=== PATIENT | female | born 1935 | race Caucasian/White ===

== ENCOUNTER → 2016-12-03 | Outpatient (CLI) | payer BC ==
[~2016-12-03] MED LIST: ATOR-22 PO; AZEL0.057; CALC500C70 PO; CETI5TAB5 PO; CLB/200 PO; CLIN1GEL TOP; COEN1CAP17 PO; ESCI1TAB6 PO; FEXO1TAB46 PO; GABA-112 PO; GLUCPOW41 PO; METR0.7527 TOP; POLYSOL4; [UNRECOGNIZED DRUG - CODE] TOP; [UNRECOGNIZED DRUG - CODE] TOP; [UNRECOGNIZED DRUG - OTHER] PO
--- NOTE | 2016-12-03 10:00 | DIAGNOSTIC IMAGING REPORT ---
LUMBAR SPINE MRI HISTORY: Pain BACK PAIN TECHNIQUE: Multiplanar multisequence MRI of the lumbar spine was performed without the use of contrast. COMPARISON: None. FINDINGS: For the purpose of the report the L5-S1 disc space will be located on axial image 27 of 30. Moderate to rather significant multilevel degenerative intervertebral disc change. Minimal grade 1 reversal subluxation of L5 on S1. Minimal grade 1 anterolisthesis of L4 and L5. T12/L1; mild broad-based disc herniation. Mild impact anterior thecal sac. L1-L2: Moderate broad-based disc herniation. Moderate impact anterior thecal sac. Mild multifactorial narrowing of the spinal canal. Degenerative change posterior elements. L2-L3: Mild multifactorial narrowing of spinal canal. Mild broad-based disc herniation. Minimal narrowing of the neuroforamina bilaterally L3-L4: Significant to rather severe multifactorial spinal stenosis. Based disc herniation. No significant narrowing left and to lesser extent right neural foramina. L4-L5: Moderate multifactorial spinal stenosis. Broad-based disc herniation. Minimal grade 1 anterolisthesis of L4 and L5. Mild narrowing of the neuroforamina bilaterally. L5-S1: Mild broad-based disc herniation. Mild impact anterior thecal sac and right as well as left S1 nerve roots. Moderate compromise of the neuroforamina bilaterally. IMPRESSION: 1. Multilevel degenerative disc change with multilevel disc herniations at virtually all levels as described. 2. Severe multifactorial spinal stenosis L3-L4 and to a somewhat lesser extent L4-L5. 3. Moderate to rather significant compromise of the neuroforamina bilaterally at virtually all levels as discussed. Electronically signed by: Emile Sneed M.D. 12/03/2016 9:59 AM Dictated Date/Time: 12/03/2016 9:53 AM
== END | disposition home or self-care (01) ==
LOC: C.MRI 08:23
PROVIDERS: ATTEND Internal Medicine
DX: M51.26 Other intervertebral disc displacement, lumbar region (principal); M48.06 Spinal stenosis, lumbar region; Z79.1 Long term (current) use of non-steroidal anti-inflammatories (NSAID)

== ENCOUNTER → 2017-01-04 | Outpatient (CLI) | payer BC ==
--- NOTE | 2017-01-04 14:34 | DIAGNOSTIC IMAGING REPORT ---
LEG LENGTH STUDY (WHOLE LEG) CLINICAL HISTORY: LEG LENGTH DISCREPENCY, LOW BACK PAIN, RT HIP PAIN COMPARISON STUDY: No previous studies for comparison. FINDINGS: The right lower extremity as measured from the femoral head to the tibial plafond measures 938 mm. The left lower extremity as measured from the femoral head to the tibial plafond measures 942 mm. IMPRESSION: The left lower extremity measures 4 mm longer than the right. Electronically signed by: Mingo Bolden M.D. 01/04/2017 2:32 PM Dictated Date/Time: 01/04/2017 2:30 PM
== END | disposition home or self-care (01) ==
LOC: C.RADBC 14:09
PROVIDERS: ATTEND Anesthesiology
DX: M54.5 Low back pain (principal); M25.551 Pain in right hip; M21.70 Unequal limb length (acquired), unspecified site

== ENCOUNTER → 2017-01-07 | Outpatient (CLI) | payer BC ==
[~2017-01-07] MED LIST changes: -CLIN1GEL TOP; -FEXO1TAB46 PO
[2017-01-07 09:37] LABS: BLOOD UREA NITROGEN 20 mg/dl (7-18); BUN/CREATININE RATIO 25.9 (10-20); CALCIUM 8.3 mg/dl (8.5-10.1); CARBON DIOXIDE 27 mmol/L (21-32); CHLORIDE 107 mmol/L (98-107); CHOLESTEROL 133 mg/dl (0-200); CHOLESTEROL/HDL RATIO 2.5; CREATININE 0.78 mg/dl (0.60-1.20); GLUCOSE 99 mg/dl (70-99); HDL CHOLESTEROL 54 mg/dl; LDL CHOLESTEROL CALCULATED 62 mg/dl; POTASSIUM 3.8 mmol/L (3.5-5.1); SODIUM 142 mmol/L (136-145); TRIGLYCERIDES 83 mg/dl (0-150); VERY LOW DENSITY LIPOPROT CALC 17 mg/dl
== END | disposition home or self-care (01) ==
LOC: C.LABFOXMH 09:01
PROVIDERS: ATTEND Internal Medicine
DX: E78.00 Pure hypercholesterolemia, unspecified (principal)

== ENCOUNTER → 2017-05-28 | Outpatient (CLI) | payer BC ==
[2017-05-28 09:44] LABS: HEMATOCRIT 38.6 % (37-47); MEAN CELL VOLUME 94.4 fL (80-100); MEAN CORPUSCULAR HGB CONC 33.9 g/dl (32-36); MEAN PLATELET VOLUME 11.4 fL (7.4-10.4); PLATELET COUNT 152 K/uL (130-400); RED BLOOD COUNT 4.09 M/uL (4.2-5.4); WHITE BLOOD COUNT 7.08 K/uL (4.8-10.8)
[2017-05-28 09:58] LABS: BLOOD UREA NITROGEN 26 mg/dl (7-18); BUN/CREATININE RATIO 30.1 (10-20); CALCIUM 8.4 mg/dl (8.5-10.1); CARBON DIOXIDE 31 mmol/L (21-32); CHLORIDE 109 mmol/L (98-107); CREATININE 0.87 mg/dl (0.60-1.20); GLUCOSE 96 mg/dl (70-99); SODIUM 144 mmol/L (136-145)
== END | disposition home or self-care (01) ==
LOC: C.LABFOXMH 09:16
PROVIDERS: ATTEND Internal Medicine
DX: Z51.81 Encounter for therapeutic drug level monitoring (principal)

== ENCOUNTER → 2017-07-29 | Outpatient (CLI) | payer BC ==
--- NOTE | 2017-07-29 14:56 | DIAGNOSTIC IMAGING REPORT ---
R PELVIS UNILATERAL HIP 1 VIEW CLINICAL HISTORY: RIGHT HIP PAIN pain COMPARISON: None. DISCUSSION: Significant degenerative change right hip. Degenerative changes of the articular services of the femoral head as well as acetabulum. No acute bony abnormality. No evidence for acetabular protrusion. Mild degenerative change left hip. There is no evidence for soft tissue swelling. IMPRESSION: Severe degenerative change right hip. Mild degenerative change left hip. No acute process. The above report was generated using voice recognition software. It may contain grammatical, syntax or spelling errors. Electronically signed by: Emile Sneed M.D. 07/29/2017 2:54 PM Dictated Date/Time: 07/29/2017 2:54 PM
== END | disposition home or self-care (01) ==
LOC: C.RDSM 14:45
PROVIDERS: ATTEND Physician Assistant
DX: M16.11 Unilateral primary osteoarthritis, right hip (principal)

== ENCOUNTER → 2017-10-22 | Outpatient (CLI) | payer BC ==
[~2017-10-22] MED LIST changes: +AMLO2.5T PO; -CALC500C70 PO; +CALC8.5C PO; -GABA-112 PO; +PRLSR20 PO; -[UNRECOGNIZED DRUG - OTHER] PO
[2017-10-22 09:05] LABS: BLOOD UREA NITROGEN 22 mg/dl (7-18); BUN/CREATININE RATIO 29.2 (10-20); CALCIUM 8.9 mg/dl (8.5-10.1); CARBON DIOXIDE 27 mmol/L (21-32); CHLORIDE 108 mmol/L (98-107); CREATININE 0.77 mg/dl (0.60-1.20); GLUCOSE 112 mg/dl (70-99); POTASSIUM 3.8 mmol/L (3.5-5.1); SODIUM 142 mmol/L (136-145)
== END | disposition home or self-care (01) ==
LOC: C.LABFOXMH 08:31
PROVIDERS: ATTEND Internal Medicine
DX: I10 Essential (primary) hypertension (principal)

== ENCOUNTER → 2017-11-19 | Outpatient (CLI) | payer BC, OTHER ==
[~2017-11-19] MED LIST changes: +ACET-1256 PO; -AMLO2.5T PO; -AZEL0.057; +AZEL0.057 TOP; +CALC1CHW57 PO; -CALC8.5C PO; +INDA1TAB3 PO; +KETOPROFEN TOP; -POLYSOL4; +POLYSOL4 OPB; -[UNRECOGNIZED DRUG - CODE] TOP; +[UNRECOGNIZED DRUG - OTHER] PO
--- NOTE | 2017-11-19 13:58 | MAMMOGRAPHY REPORT ---
BILATERAL DIGITAL SCREENING MAMMOGRAM TOMOSYNTHESIS WITH CAD: 11/19/2017 CLINICAL HISTORY: Routine screening. Patient has no complaints. TECHNIQUE: Breast tomosynthesis in addition to standard 2D mammography was performed. Current study was also evaluated with a Computer Aided Detection (CAD) system. COMPARISON: Comparison is made to exams dated: 09/07/2016 mammogram, 08/12/2015 mammogram, 08/09/2014 mammogram, 07/06/2013 mammogram, 07/05/2012 mammogram, and 07/01/2011 mammogram - [facility] nter. BREAST COMPOSITION: The tissue of both breasts is almost entirely fatty. FINDINGS: No suspicious masses, calcifications, or areas of architectural distortion are noted in ei ther breast. There has been no significant interval change compared to prior exams. IMPRESSION: ACR BI-RADS CATEGORY 1: NEGATIVE There is no mammographic evidence of malignancy. A 1 year screening mammogram is recommended. The pa tient will receive written notification of the results. Approximately 10% of breast cancers are not detected with mammography. A negative mammographic report should not delay biopsy if a clinically suggestive mass is present. Talia Johnson M.D. /:11/19/2017 12:40:25 Investigation Officer: Madie VÁZQUEZ(Almaz)(M), [facility] letter sent: Normal 1/2 BI-RADS Code: ACR BI-RADS Category 1: Negative
== END | disposition home or self-care (01) ==
LOC: C.MAMM 10:45
PROVIDERS: ATTEND Internal Medicine
DX: Z12.31 Encounter for screening mammogram for malignant neoplasm of breast (principal)

== ENCOUNTER 2017-12-01 04:49 | Inpatient (IN) | payer BC, OTHER ==
--- NOTE | 2017-11-15 17:41 | HISTORY & PHYSICAL EXAMINATION ---
DATE: 12/01/2017. CHIEF COMPLAINT: Right hip pain. HISTORY OF PRESENT ILLNESS: This 82-year-old white female presents to the office with complaints of bilateral hip pain, right greater than left, for several years. Pain has become worse with time. She has tried activity modification, use of an assistive device, and oral pain medications without lasting relief. She elects to proceed with surgical intervention in hopes of alleviating her discomfort. She has tried physical therapy as well as aqua therapy. No new injury. No new falls. Preoperative imaging has been obtained. She elects to proceed with right total hip arthroplasty in hopes of alleviating her discomfort. PAST MEDICAL HISTORY: Significant for hypertension, elevated cholesterol, osteoarthritis, chronic neck pain, and history of C. diff infection. Also, known history of seborrheic keratosis, benign positional vertigo, and rosacea. PAST SURGICAL HISTORY: Shave biopsies, cystoscopy, tubal ligation in 1974, wisdom tooth extraction in 1969, knee arthroscopy, colonoscopy, dilatation and curettage, endoscopy, Mohs' surgery and tonsillectomy. FAMILY HISTORY: Noncontributory. SOCIAL HISTORY: The patient is . Retired. No tobacco use. Daily ETOH use. ALLERGIES: KNOWN ALLERGY TO CLINDAMYCIN, CODEINE, PEANUTS, POLYSPORIN, AND PENICILLINS, WHICH CAUSE A RASH. CURRENT MEDICATIONS: Amlodipine 2.5 mg half tablet daily, calcium with vitamin D b.i.d., Celebrex 200 mg p.o. daily, Glucosamine and chondroitin 2 tablets daily, CoQ10 of 100 mg p.o. daily, escitalopram one and a half tablets daily, Finacea 15% topical gel b.i.d., ketoprofen topical gel daily, Lipitor 20 mg p.o. daily, MetroGel 1% topical applied once daily, omeprazole 20 mg p.o. daily, Systane ophthalmic solution 1 drop in both eyes b.i.d., Zyrtec 5 mg p.o. daily, and Promiseb topical cream twice daily. REVIEW OF SYSTEMS: Significant for above stated conditions, otherwise unremarkable. PHYSICAL EXAMINATION: GENERAL: Well-developed and well-nourished elderly white female in no acute distress. Sitting in a chair. Alert and oriented. SKIN: Warm and dry with fair turgor. No rashes or lesions. No ecchymosis or erythema. HEENT: Normocephalic and atraumatic. Eyes: PERRLA and EOMI. Ears: Hearing aides are in place. Nares patent bilaterally without turbinate enlargement, minor clear nasal drainage. Oropharynx is without erythema or exudate. No lesions noted. Uvula midline. Oral mucosa moist. Good dentition. HEART: RRR. No MGR. LUNGS: Clear to auscultation bilaterally. No crackles, rhonchi or wheezing. Good air movement. ABDOMEN: Bowel sounds present x4, soft and nontender. No organomegaly. No masses. MUSCULOSKELETAL: Right hip has no obvious asymmetry or deformity. Reasonable motion with flexion to around 100 degrees. External rotation 25 degrees. Internal rotation of only around 10 degrees. No palpable crepitus with motion. Ambulatory with an antalgic gait using a walker. There is focal discomfort with palpation over the greater trochanter as well as the anterior flexion crease. No pain with palpation along the IT band. Full motion of the knee. NEUROLOGIC: Cranial nerves II through XII are intact. Gross sensation is intact across the right leg by soft touch. DATA: Radiographic imaging previously obtained shows significant hip DJD with periarticular osteophytes, subchondral sclerosis, and joint space narrowing present. IMPRESSION: Right hip end-stage degenerative joint disease. PLAN: Approximately 25 minutes was spent with the patient. Postoperative prescriptions for Percocet and Coumadin will be provided at discharge from the hospital. Anticipate discharge back to [facility] in the assisted living section. Preoperative lab work, EKG, and chest x-ray have been ordered. Medical clearance has been requested from her PCP, Dr. Hurt. Informed written consent will be obtained in the morning of surgery to proceed with right total hip arthroplasty. She already has a walker and cane.
[2017-11-17 12:21] VITALS: BMI 31.0
--- NOTE | 2017-11-17 13:25 | PAT Medication Instructions ---
Service Date Nov 17, 2017. Current Home Medication List Acetaminophen (Tylenol), 325-1,000 MG PO PRN Antiseborrheic Products, Misc. (Promiseb), 1 DOSE TOP BID Atorvastatin (Lipitor), 20 MG PO HS Azelaic Acid (Finacea), 1 DOSE TOP BID Calcium W/ Vitamins D & K (Calcium + D), 1 TAB PO BID Celecoxib (CeleBREX), 200 MG PO BID Cetirizine Hcl (Zyrtec), 5 MG PO HS Coenzyme Q10 (Ubidecarenone) (Co Q 10), 1 CAP PO QAM Escitalopram Oxalate (Lexapro), 7.5 MG PO HS Pfsdkttxbyg-Kafsjycojrq-Vatdyo (Glucosamine & Chrondroiti), 1 CAP PO QAM Indapamide (Lozol), 1.25 MG PO QAM Metronidazole (Topical) (Metrogel), TOP DAILY Omeprazole (Prilosec), 20 MG PO 3XWEEK Polyethylene Glycol-Propylene (Systane), 1 DROP OPB BID [Florigen], 1 TAB PO QAM [Ketoprofen 15%], 1 DOSE TOP PRN Medication Instructions For Your Scheduled Surgery - Hold the following medications 2 weeks prior to surgery--STOP TAKING TODAY: Coenzyme Q10 (Ubidecarenone) (Co Q 10), 1 CAP PO QAM Jqpumsxnebn-Uohajspyfab-Jcptgm (Glucosamine & Chrondroiti), 1 CAP PO QAM [Florigen], 1 TAB PO QAM - Hold the following medications 6 days prior to surgery PER YOUR SURGEON'S INSTRUCTIONS: Celecoxib (CeleBREX), 200 MG PO BID [Ketoprofen 15%], 1 DOSE TOP PRN - Hold the following medications 24 hours prior to surgery: Metronidazole (Topical) (Metrogel), TOP DAILY Antiseborrheic Products, Misc. (Promiseb), 1 DOSE TOP BID --last dose Wednesday morning Azelaic Acid (Finacea), 1 DOSE TOP BID--last dose Wednesday morning - Hold the following medications the morning of surgery: Calcium W/ Vitamins D & K (Calcium + D), 1 TAB PO BID Indapamide (Lozol), 1.25 MG PO QAM - Take the following medications the morning of surgery with a sip of water: Omeprazole (Prilosec), 20 MG PO 3XWEEK Polyethylene Glycol-Propylene (Systane), 1 DROP OPB BID Acetaminophen (Tylenol), 325-1,000 MG PO PRN (if needed, can be taken up to four hours before surgery) - Take the following medications as scheduled the night before surgery: Calcium W/ Vitamins D & K (Calcium + D), 1 TAB PO BID Cetirizine Hcl (Zyrtec), 5 MG PO HS Escitalopram Oxalate (Lexapro), 7.5 MG PO HS Atorvastatin (Lipitor), 20 MG PO HS Polyethylene Glycol-Propylene (Systane), 1 DROP OPB BID Acetaminophen (Tylenol), 325-1,000 MG PO PRN (if needed) If you have any questions please call us at [phone] or [phone] or [phone]
[2017-11-17 14:07] LABS: BASO % 0.5 %; BASO ABS # 0.03 K/uL (0-0.2); EOS % 2.2 %; EOS ABS # 0.13 K/uL (0-0.5); HEMATOCRIT 40.1 % (37-47); HEMOGLOBIN 13.4 g/dL (12.0-16.0); LYMPH % 23.5 %; LYMPH ABS # 1.42 K/uL (1.2-3.4); MEAN CELL VOLUME 92.4 fL (80-100); MEAN CORPUSCULAR HEMOGLOBIN 30.9 pg (25-34); MEAN CORPUSCULAR HGB CONC 33.4 g/dl (32-36); MEAN PLATELET VOLUME 10.6 fL (7.4-10.4); MONO % 7.3 %; MONO ABS # 0.44 K/uL (0.11-0.59); NEUT % 66.5 %; NEUT ABS # 4.02 K/uL (1.4-6.5); PLATELET COUNT 179 K/uL (130-400); RED CELL DISTRIBUTION WIDTH CV 12.7 % (11.5-14.5); RED CELL DISTRIBUTION WIDTH SD 43.1 fL (36.4-46.3); WHITE BLOOD COUNT 6.04 K/uL (4.8-10.8)
[2017-11-17 16:21] LABS: CALCIUM 9.1 mg/dl (8.5-10.1); CREATININE 0.8 mg/dl (0.60-1.20); POTASSIUM 3.7 mmol/L (3.5-5.1)
[2017-12-01] VITALS (9 sets, daily range): BP systolic 130–170; BP diastolic 62–93; PULSE 59–78; TEMP 36.4–36.9; O2SAT 95–100; Ht 182.9 cm; Wt 103.1 kg
[~2017-12-01] VITALS: Ht 182.9 cm; Wt 103.1 kg
[2017-12-01] MEDS ORDERED: LACTATED RINGER'S 1000ML 500 ML IV SCH (06:00)
[2017-12-01] MEDS ORDERED: LACTATED RINGER'S 1000ML IV SCH (06:00)
[2017-12-01] MEDS ORDERED: LACTATED RINGER'S 1000ML 1,000 ML IV SCH (06:00)
[2017-12-01] MEDS ORDERED: ROPIVACAINE 5MG/ML 30 ML 150 MG, BUPIVACAINE/EPINEPHR 0.5% MPF 30 ML, KETOROLAC TROMETH... INFIL SCH ×7 (06:00)
[2017-12-01] MEDS ORDERED: CEFAZOLIN 2000MG IV PUSH 15 ML IV SCH (06:00)
--- NOTE | 2017-12-01 06:20 | History & Physical Bridge Note ---
H&P Re-Evaluation Bridge Note: I have examined the patient, reviewed the History & Physical and in the interval since the performance of the History & Physical I have noted the following changes of clinical significance: consent obtained.No changes noted
[2017-12-01] MEDS ORDERED: BUPIVACAINE 0.5 % 5 MG/1 ML PF 10ML VIAL ONE (06:28)
[2017-12-01] MEDS ORDERED: ORTHO JOINT ANESTHETIC ONE (06:32)
[2017-12-01] MEDS ORDERED: POVIDONE-IODINE OP SOLN 30 ML BTL ONE (06:32)
[2017-12-01] MEDS ORDERED: PROPOFOL IV EMULSION 10 MG/ML 20 ML VIAL IV ONE ×2 (06:34→08:02)
[2017-12-01] MEDS ORDERED: MIDAZOLAM HCL 1 MG/ML 2ML VIAL ONE (06:34)
[2017-12-01] MEDS ORDERED: LIDOCAINE HCL 2% 2 ML VIAL (20MG/ML) ONE (06:34)
[2017-12-01] MEDS ORDERED: FENTANYL CITRATE INJ 50 MCG/1 ML 2 ML VIAL ONE (06:34)
[2017-12-01] MEDS: TRANEXAMIC ACID INJ 1,000 MG in SYRINGE 0 ML IV SCH ×2 (06:35→10:13)
[2017-12-01] MEDS ORDERED: FENTANYL CITRATE INJ 50 MCG/1 ML 2 ML VIAL IV PRN (07:15)
[2017-12-01] MEDS ORDERED: ONDANSETRON INJ 2 MG/ML 2 ML VIAL IV PRN ×2 (07:15→09:00)
[2017-12-01] MEDS ORDERED: ATROPINE SULFATE 0.1 MG/ML 5ML SYR IV PRN (07:15)
[2017-12-01] MEDS ORDERED: EpHEDrine SULFATE INJ 50 MG/ML AMP IV PRN (07:15)
[2017-12-01] MEDS ORDERED: ONDANSETRON INJ 2 MG/ML 2 ML VIAL ONE (07:52)
[2017-12-01] MEDS ORDERED: CEFAZOLIN SOD 1 GM VIAL ONE (08:34)
--- NOTE | 2017-12-01 08:35 | [facility] Post Operative Brief Note ---
Immediate Operative Summary Operative Date Dec 01, 2017. Pre-Operative Diagnosis Right Hip End-Stage Degenerative Joint Disease Post-Operative Diagnosis Right Hip End-Stage Degenerative Joint Disease Procedure(s) Performed Right Total Hip Arthroplasty--Uncemented Surgeon Dr. Sims Legal Administrative Secretary Surgeon(s) LILLY Charles Estimated Blood Loss 125 ml Findings Consistent with Post-Op Diagnosis Specimens A. Right Femoral Head Drains None Anesthesia Type Spinal MAC Complication(s) none Disposition Disposition: Recovery Room / PACU
--- NOTE | 2017-12-01 08:52 | OPERATIVE REPORT ---
DATE OF OPERATION: 12/01/2017 SURGEON: Hector Sims MD. MASTER MERCHANDISER: Mau Mendez PA-C. No resident or fellow available. PREOPERATIVE DIAGNOSIS: Osteoarthritis, right hip. POSTOPERATIVE DIAGNOSIS: Same. OPERATION PERFORMED: Noncemented right total hip replacement. SUMMARY OF IMPLANTS: Size 54 acetabular shell sector cup hole eliminator, cancellous screw 6.5 x 30, acetabular liner 36 x 54 neutral, femoral stem size 4 Tri-Lock standard and Articul/Rivas femoral head 8.536. ESTIMATED BLOOD LOSS: 125 mL. CRYSTALLOID: 1500 mL. DVT prophylaxis will be with Coumadin. PERIOPERATIVE SITUATION: Medically cleared female with intractable hip pain has been having pain for over a decade. At this point in time, was requesting hip replacement. Advised concerning complications including leg length inequality, instability, fracture, femoral sciatic, nerve injury, etc. Please see consent. DESCRIPTION OF THE PROCEDURE: The patient was properly identified, site verified, consent verified, 2 grams of Ancef confirmed as being given. The patient was placed in left lateral decubitus position and the right lower extremity prepped and draped in usual routine fashion. Posterior approach to the hip was made. Sharp dissection carried to skin and blunt dissection down to the fascia. Charnley retractor was placed due to size. IT band was then incised. Short external rotators were identified and released. Care taken to protect the sciatic nerve. Capsule was then opened in the hip dislocated. The femoral neck resected. There was a large inverted labrum. Marked degenerative change in cyst. This was all cleaned out, reamed and a 54 cup impacted into appropriate anteversion and inclination and then secured with an additional 6.5 x 30 screw with a good bite. The wound was then irrigated with Betadine Pulsavac. Trial liner seated. The femur was then flexed and internally rotated. The proximal femur prepared with a box toe cementer, lateralizing rasp, canal finder and serial broaching up to a size 4. Trial reduction was carried out. A +5 made a slightly short, 8.5 made it slightly long and stability was excellent, so we took that. She does have back disease and does have hip disease on the other side, so it was going always be evened out. Once the trial implants were removed after dislocating the trial replacement, the wound was irrigated with Betadine, Pulsavac, hole eliminator seated, permanent liner seated, permanent head and neck seated, the hip reduced. It was stable in all planes. Leg lengths were within millimeters of equality. Wound irrigated with Betadine Pulsavac and then closed with #1 Vicryl for the capsule, #1 Vicryl for the piriformis, #1 Vicryl for the fascial layer, 2-0 Vicryl for subcutaneous layer and stainless steel clips for skin. Appropriate dressing applied. The patient transferred to recovery room in satisfactory condition having tolerated the procedure well. Specimen pending is femoral head. EBL 125. Crystalloid 1500 mL. I attest to the content of the Intraoperative Record and any orders documented therein. Any exceptions are noted below. MTDD
[2017-12-01] MEDS ORDERED: BISACODYL 10 MG SUPP PR PRN (09:00)
[2017-12-01] MEDS ORDERED: ACETAMINOPHEN 325 MG TAB PO PRN (09:00)
[2017-12-01] MEDS ORDERED: DiphenhydrAMINE HCL 50 MG/ML VIAL IV PRN (09:00)
[2017-12-01] MEDS ORDERED: MoRPHine SULFATE 2 MG/ML CARP IV PRN (09:00)
[2017-12-01] MEDS ORDERED: ALUMINUM/MAGNESIUM/SIMETH (MAALOX MAX) 30 ML UDC PO PRN (09:00)
[2017-12-01] MEDS ORDERED: MAGNESIUM HYDROXIDE SUSP 30 ML UDC PO PRN (09:00)
[2017-12-01] MEDS ORDERED: METOCLOPRAMIDE HCL INJ 5 MG/ML 2 ML VIAL IV PRN (09:00)
[2017-12-01] MEDS ORDERED: OXYCODONE HCL IR 5 MG TAB (IMMEDIATE RELEASE) PO PRN (09:00)
--- NOTE | 2017-12-01 09:00 | [facility] Operative Report ---
Operative Report Operative Date Dec 01, 2017. Pre-Operative Diagnosis Right Hip End-Stage Degenerative Joint Disease Post-Operative Diagnosis Right Hip End-Stage Degenerative Joint Disease Procedure(s) Performed Right Total Hip Arthroplasty--Uncemented Surgeon Dr. Sims Planned Giving Officer Surgeon(s) LILLY Wilks Estimated Blood Loss 125 ml Findings Right hip end-stage DJD Specimens A. Right Femoral Head Drains none Complication(s) None Disposition Recovery Room / PACU Indications This 82-year-old white female presented the office with complaints of intractable right hip pain. She had tried conservative care measures without success. Patient elected to proceed with surgical intervention after being educated about potential risks and outcomes. Preoperative imaging was obtained. Description of Procedure Patient was administered a spinal anesthetic and then taken to the operating room where she was given sedation. She was prepped and draped in usual sterile fashion. Please see Dr. Sims's operative report for specifics of the procedure. I was present for the entire case from initial patient positioning through final wound closure. Assistance was provided in tissue traction, hemostasis, trial implant placement, final implant placement, and final wound closure. Patient was taken to the recovery room in satisfactory condition. I attest to the content of the Intraoperative Record and any orders documented therein. Any exceptions are noted below.
--- NOTE | 2017-12-01 09:25 | DIAGNOSTIC IMAGING REPORT ---
PELVIS 1 OR 2 VIEW ROUTINE CLINICAL HISTORY: Status post total right hip arthroplasty. COMPARISON STUDY: Pelvis and hip radiographs March 23, 2016. FINDINGS: Alignment of the total right hip arthroplasty is anatomic. There is no periprosthetic fracture or unexpected radiopaque foreign body. Skin kevan are present. IMPRESSION: Expected findings following total right hip arthroplasty. Electronically signed by: Ede Alcantar M.D. 12/01/2017 9:24 AM Dictated Date/Time: 12/01/2017 9:23 AM
--- NOTE | 2017-12-01 09:31 | Anesthesiology Progress Note ---
Anesthesia Post Op Note Date & Time Dec 01, 2017 at 09:31 Vital Signs Pain Intensity: 0 Vital Signs Past 12 Hours Date Time Temp Pulse Resp B/P (MAP) Pulse Ox O2 Delivery O2 Flow Rate FiO2 12/01/17 09:13 63 14 100 12/01/17 09:13 62 14 12/01/17 09:12 111/76 12/01/17 09:08 64 16 12/01/17 09:08 66 16 100 12/01/17 09:06 133/70 12/01/17 09:03 65 13 12/01/17 09:03 66 13 100 12/01/17 09:02 66 16 100 12/01/17 09:02 65 16 12/01/17 09:01 119/88 12/01/17 08:57 64 17 12/01/17 08:57 65 17 100 12/01/17 08:56 133/74 12/01/17 08:52 70 17 100 12/01/17 08:52 69 17 12/01/17 08:51 151/72 12/01/17 08:47 68 18 118/62 100 12/01/17 08:47 65 18 12/01/17 08:43 154/71 12/01/17 08:42 66 18 100 12/01/17 08:42 36.0 64 18 154/71 100 Oxymask 10 12/01/17 08:42 65 18 12/01/17 05:40 36.9 74 18 170/93 98 Room Air Notes Mental Status: alert / awake / arousable, participated in evaluation Pt Amnestic to Procedure: Yes Nausea / Vomiting: adequately controlled Pain: adequately controlled Airway Patency, RR, SpO2: stable & adequate BP & HR: stable & adequate Hydration State: stable & adequate Neuraxial Anesthesia: was administered, sensory block is resolving Anesthetic Complications: no major complications apparent
[2017-12-01] MEDS ORDERED: MoRPHine SULFATE 4 MG/ML 1 ML CARP\\VIAL IV PRN (10:45)
[2017-12-01] MEDS: INDAPAMIDE 1.25 MG TAB PO SCH (10:48)
[2017-12-01] MEDS ORDERED: D5W AND 1/2NSS + 20MEQ KCL 1,000 ML IV SCH (11:00)
--- NOTE | 2017-12-01 11:22 | PROGRESS NOTE ---
DATE: 12/01/2017 SUBJECTIVE: Postop check status post right total hip replacement. The patient is sitting up in bed, had some breakfast. Denies any nausea, vomiting, chest pain, shortness of breath, fever or chills or headache. OBJECTIVE: Vital signs are stable. She is afebrile. Neurovascular check femoral sciatic nerve is normal. Wound dressing clean, dry and intact. Hip is located. Postop x-rays look excellent. ASSESSMENT: Status post right total hip replacement. At this point in time, we will get her up out of bed and start moving. Hep-Lock IV and prepare for discharge tomorrow. Transfer back to a [facility]dc.
[2017-12-01] MEDS: KETOROLAC TROMETHAMINE 15 MG/ML VIAL IV. SCH ×3 (11:41→23:14)
[2017-12-01] MEDS: ACETAMINOPHEN IV 1,000 MG in EMPTY BAG 0 ML IV SCH ×2 (11:41→20:25)
[2017-12-01] MEDS: FERROUS GLUCONATE 324 MG TAB PO SCH ×2 (11:41→18:15)
[2017-12-01] MEDS ORDERED: TRANEXAMIC ACID INJ 1,000 MG in SODIUM CHLORIDE 0.9% 100ML 100 ML IV SCH (14:00)
[2017-12-01] MEDS ORDERED: WARFARIN SOD 5 MG TAB PO SCH (16:00)
[2017-12-01] MEDS: DOCUSATE SODIUM 100 MG CAP PO SCH (20:26)
[2017-12-01] MEDS ORDERED: CETIRIZINE HCL 10 MG TAB PO SCH (21:00)
[2017-12-01] MEDS ORDERED: ESCITALOPRAM OXALATE ORAL SOLN 5 MG/5 ML PO SCH (21:00)
[2017-12-01] MEDS ORDERED: ATORVASTATIN 20 MG TAB PO SCH (21:00)
[2017-12-02 03:45] VITALS: BP 150/68; PULSE 72; TEMP 37; O2SAT 98
[2017-12-02] MEDS: ACETAMINOPHEN IV 1,000 MG in EMPTY BAG 0 ML IV SCH (03:52)
[2017-12-02] MEDS: KETOROLAC TROMETHAMINE 15 MG/ML VIAL IV. SCH (05:23)
[2017-12-02 06:11] LABS: BASO % 0.1 %; BASO ABS # 0.01 K/uL (0-0.2); HEMOGLOBIN 10.7 g/dL (12.0-16.0); IG# 0.02 K/uL (0.00-0.02); LYMPH % 9.1 %; LYMPH ABS # 1.18 K/uL (1.2-3.4); MEAN CELL VOLUME 91.7 fL (80-100); MEAN CORPUSCULAR HEMOGLOBIN 31.7 pg (25-34); MEAN CORPUSCULAR HGB CONC 34.5 g/dl (32-36); MEAN PLATELET VOLUME 10.5 fL (7.4-10.4); MONO % 7.4 %; MONO ABS # 0.95 K/uL (0.11-0.59); NEUT % 83.2 %; NEUT ABS # 10.74 K/uL (1.4-6.5); PLATELET COUNT 155 K/uL (130-400); RED CELL DISTRIBUTION WIDTH CV 12.8 % (11.5-14.5); RED CELL DISTRIBUTION WIDTH SD 43.1 fL (36.4-46.3)
[2017-12-02 06:43] LABS: CALCIUM 7.9 mg/dl (8.5-10.1); CREATININE 0.92 mg/dl (0.60-1.20); POTASSIUM 3.6 mmol/L (3.5-5.1)
[2017-12-02 06:45] LABS: INR 1.1 (0.9-1.1)
[2017-12-02 06:53] VITALS: BP 160/77; PULSE 69; TEMP 37; O2SAT 97
--- NOTE | 2017-12-02 07:04 | PROGRESS NOTE ---
DATE: 12/02/2017 Postop day #1 status post right total hip replacement. The patient is doing well. She has slept well. She denies any chest pain, shortness of breath, fever, chills, nausea, vomiting, or headache. She has only minor incisional pain. It is well controlled. She denies any groin pain or previous joint pain. Vital signs are stable. She is afebrile. Hematocrit is stable in the 31 range. White count is elevated from the steroids. INR is pending. Chemistry is pending. Wound dressing is clean, dry and intact. Femoral sciatic nerve, neurologic function normal. Calves nontender. Abdomen nontender. Wound is dressing clean, dry and intact. ASSESSMENT: Doing well. Will mobilize more today. I saw her walking up yesterday in the room and going to the bathroom, looked fine. If she passes PT this morning, can transfer to [facility]. Will discharge on 4 mg Coumadin if INR is less than 1.5. If INR is greater than 1.6, discharge on 2 mg. No Lovenox. Did not use it any more. Use mobilization and INR treatment with Coumadin. Follow up in 2 weeks for staple removal. Will have a Prevena dressing applied and leave in place for 7-10 days.
--- NOTE | 2017-12-02 07:23 | DISCHARGE SUMMARY ---
DATE OF DISCHARGE: Conditional, 12/02/2017 versus 12/03/2017. CHIEF COMPLAINT: Right hip pain. HISTORY OF PRESENT ILLNESS: An 82-year-old female admitted for elective right total hip replacement for end-stage disease. Hospital course has been uneventful. She has tolerated it well. She is mobilizing. Her pain is well managed. PAST MEDICAL HISTORY: Remarkable for hypertension, hypercholesterolemia, osteoarthritis, history of C. diff, history of seborrheic keratosis, benign positional vertigo, and rosacea. PAST SURGICAL HISTORY: Remarkable for skin surgery, cystoscopy, tubal ligation, wisdom teeth, multiple arthroscopies, colonoscopies, dilatation and curettage, Mohs' surgery and tonsillectomy. FAMILY HISTORY: Noncontributory. SOCIAL HISTORY: Reveals that she is and retired. No tobacco. Uses social alcohol. ALLERGIES: CLINDAMYCIN, CODEINE, PEANUTS, POLYSPORIN AND PENICILLINS, WHICH CAUSE A RASH. She can tolerate cephalosporins. PREADMISSION MEDICATIONS: Include amlodipine, Celebrex, glucosamine chondroitin, CoQ10, escitalopram, Finacea, ketoprofen topical gel, Lipitor, MetroGel, omeprazole, Systane, Zyrtec and Promiseb topical cream. She will discontinue the Celebrex. She will add p.r.n. Percocet or prescription pain medications. See script. She will also use Coumadin to keep INR 1.8-2.2. Use no Lovenox. REVIEW OF SYSTEMS: Noncontributory. ASSESSMENT: Doing well, status post right total hip replacement. Will conditionally discharge today if she passes the a.m. PT. Return to [facility]. She will have a Prevena dressing in place and leave on for 7-10 days. She will return to the office to remove it.
[2017-12-02] MEDS ORDERED: DEXAMETHASONE INJ 10 MG in SYRINGE 0 ML IV SCH (07:30)
[2017-12-02] MEDS ORDERED: WARF2TAB PO (08:27)
[2017-12-02] MEDS ORDERED: OXYC-57 PO (08:27)
--- NOTE | 2017-12-02 08:30 | Discharge Instructions ---
Discharge Instructions Date of Service Dec 02, 2017. Admission Reason for Admission: Right Hip Degenerative Joint Disease Discharge Discharge Diagnosis / Problem: Right Hip Degenerative Joint Disease Discharge Goals Goal(s): Decrease discomfort, Improve function, Increase independence Activity Recommendations Activity Limitations: as noted below Lifting Limitations: none Exercise/Sports Limitations: until after follow-up appointment May Resume Sexual Activity: after follow-up appointment Shower/Bathe: tomorrow, keep incision dry Driving or Machine Use: No driving until cleared by oil fire specialist Weightbearing Status: Right weightbearing (as tolerated with aide of walker) . Instructions / Follow-Up Instructions / Follow-Up New Medicine: * You will likely be taking one or more of these medicines: 1. Percocet - Take, as directed, when you need it, every four to six hours to control your pain. 2. Iron Sulfate - Take three times each day for the month after surgery to help you replace the blood lost during surgery. 3. Coumadin - Thins your blood to lessen the chance of forming a blood clot. The dose of this is different for each person and is based on your blood tests that are done twice a week. * The most common side effects of pain medicine and iron are nausea and constipation. If nausea or constipation is too much of a problem or if you have any questions about your new medicines or doses, call [facility] at . We will try to help you manage these issues. VERY IMPORTANT TO READ AND REVIEW" Blood Clots and Blood Thinning Medicine: * You are given Coumadin during the immediate post-operative period to lessen the risk of blood clots forming in your legs and/or lungs. Coumadin is usually given for six weeks after surgery. * The prescription is for 2 mg tablets. At discharge, you should understand your dose and take it all at the same time every day, preferably after dinner. * You need to get your blood checked 1 - 2 times per week for six weeks, or as directed. * If your dose needs to change, we will call you. Do not take your medication on the day of the blood test until we call you. * If you don't hear from us after your blood draws, keep taking the same dose. Pain: * The immediate post-operative period after hip replacement surgery is often quite painful. * You are given a prescription for pain medicine. You should take it, as directed, when you need it, especially before physical therapy and before going to bed. Pain that interferes with sleep is very common and can last several months. * You will likely need pain medicine for the first two to four weeks. It will not stop all of the pain. The pain will lessen and as you feel better, you may change to milder pain medicine such as Tylenol. * The most common side effects of pain medicine are nausea and constipation, so don't take more than you need. Physical Therapy: * Follow the "Hip Precautions Instructions." * In some cases, the social service assistant at the hospital will arrange to have a therapist come to your house for the first couple of weeks to help you learn these skills. * You need to practice on your own or with the help of a family member as needed. * When you learn these skills, most of the therapy can be done on your own. Home Exercise: * You were shown a series of exercises in the hospital. Do these exercises three to four times each day including the exercises you were shown in physical therapy. Walking: * Get up and walk several times each day. For the first four weeks, try not to stand or walk for more than one hour at a time. If you do stand or walk for more than one hour, you will not hurt anything, but your leg will likely swell. * As you feel comfortable, you may change from the walker or crutches to a cane and then to independent walking. SELF CARE INSTRUCTIONS AFTER TOTAL HIP REPLACEMENT Until the incision and soft tissues around your hip have healed, there is a possibility that the hip prosthesis could dislocate. A. Observe the following precautions to prevent dislocation: 1. Don't bend your hip greater than 90 degrees. 2. Avoid crossing your legs or ankles while standing or lying. 3. Sit with your feet placed 6 inches apart. 4. When sitting, keep your knees below your hips. Sit on a firm surface, avoid deep, soft chairs and couches. Use an elevated toilet seat in the bathroom. 5. Don't bend over at the waist. Use a long handled shoehorn and a sock aid to help you put on your shoes and socks. A hosiery mater can help you shrimp picker objects that are too high or too low to reach. 6. Keep car riding to a minimum for at least one month after surgery. B. Your balance may be shaky for a while. Use crutches or a walker until directed by your doctor. C. Use hand rails when walking on stairs. D. Wear low heeled shoes with non-slip soles. E. Be sure that your floors are free of things that could trip you - throw rugs , electrical cords, small objects. Avoid wet and waxed floors, especially with crutches and canes. F. Try to walk several times a day with rest periods between. G. Continue with all the exercises taught to you in the hospital. Again, make walking a part of your daily routine. VERY IMPORTANT TO READ AND REVIEW A. Take Coumadin, or Lovenox (blood thinning medications) as directed by your doctor. If you are on Coumadin, have a pro-time (blood test) drawn according to your doctor's instructions. This will tell the doctor how well the Coumadin is thinning your blood. B. There are a few signs you need to watch for after you are home. If you notice any of the followin. Increased severe hip pain. Some pain is expected especially when you exercise. 2. Increased swelling in your leg or knee; pain or swelling of the calf muscle in either lower leg. 3. Any fluid drainage from the incision. 4. Shortness of breath or chest pain. TEDs/Elastic Stockings: * The white elastic stockings help limit swelling and prevent blood clots from forming in your legs. The more you wear them, the more they work. * Wear them for six weeks. Prevention of Infection: * Take antibiotics one hour before any dental cleaning, dental work, urological procedure, gastrointestinal procedure or any invasive surgery in order to prevent your new joint from getting infected. * You may get the antibiotics from the doctor performing the procedure or we will call in a prescription to the pharmacy of your choice. Call the office for a prescription at least 2 days prior to your appointment. Things to Watch For: * Drainage from the incision site that occurs more than one week after your surgery. * Severely increased leg pain or swelling. * Increased redness at the incision site. * Fever above 101 degrees Fahrenheit. * Unusual chest pain or shortness of breath. * Unusual pain or burning with urination. Current Hospital Diet Patient's current hospital diet: AHA Diet (Heart Healthy) Discharge Diet Recommended Diet: AHA Diet (Heart Healthy) Procedures Procedures Performed: Right Total Hip Arthroplasty--Uncemented Pending Studies Studies pending at discharge: no Medical Emergencies . Who to Call and When: Medical Emergencies: If at any time you feel your situation is an emergency, please call 911 immediately. . Non-Emergent Contact Non-Emergency issues call your: Primary Care Provider Call Non-Emergent contact if: you have a fever, temperature is above 101.5, your pain is not controlled, your pain is worsening, wound has increased drainage, you have any medication questions . "Provider Documentation" section prepared by Travis Arce. . VTE Core Measure Inpt VTE Proph given/why not?: Warfarin (Coumadin)[place] Drug Monitoring Program Search Results: patient reviewed within database, no issues identified, see additional documentation
[2017-12-02] MEDS: FERROUS GLUCONATE 324 MG TAB PO SCH ×2 (08:33→12:17)
[2017-12-02] MEDS: DOCUSATE SODIUM 100 MG CAP PO SCH (08:33)
[2017-12-02] MEDS: INDAPAMIDE 1.25 MG TAB PO SCH (08:33)
[2017-12-02 08:39] VITALS: BP 138/69; PULSE 71
[2017-12-02] MEDS ORDERED: MULTIVITAMIN TAB PO SCH (09:00)
[2017-12-02] MEDS ORDERED: PANTOprazole SOD 40 MG TAB PO SCH (09:00)
[2017-12-02] MEDS ORDERED: METRONIDAZOLE 0.75% TOPICAL GEL 45 GM TUBE TOP SCH (09:00)
[2017-12-02 09:11] VITALS: BP 138/69; PULSE 71; TEMP 37; O2SAT 97
--- NOTE | 2017-12-02 09:46 | Anesthesiology Progress Note ---
Anesthesia Post Op Note Date & Time Dec 02, 2017 at 09:45 Vital Signs Pain Intensity: 0.0 Vital Signs Past 12 Hours Date Time Temp Pulse Resp B/P (MAP) Pulse Ox O2 Delivery O2 Flow Rate FiO2 12/02/17 09:11 37.0 71 19 97 Room Air 12/02/17 08:39 71 138/69 (92) 12/02/17 07:05 Room Air 12/02/17 06:53 37.0 69 19 160/77 (104) 97 Room Air 12/02/17 03:45 37.0 72 18 150/68 (95) 98 Room Air 12/01/17 23:10 Room Air 12/01/17 22:46 36.7 78 17 138/62 (87) 95 Room Air Notes Mental Status: alert / awake / arousable, participated in evaluation Pt Amnestic to Procedure: Yes Nausea / Vomiting: adequately controlled Pain: adequately controlled Airway Patency, RR, SpO2: stable & adequate BP & HR: stable & adequate Hydration State: stable & adequate Neuraxial Anesthesia: sensory block resolved Anesthetic Complications: no major complications apparent
--- NOTE | 2017-12-02 09:55 | Orthopedic Progress Note ---
Orthopedic Progress Note Date of Service Dec 02, 2017. Subjective Post OP Day: 1 Reports: feeling well, complaints (Mild Right hip pain around incision site), pain controlled w PO medications Objective calves soft nontender, N/V intact, hip located, capillary refill less than 2 sec., dressing C/D/I, incision C/D/I, A&O x3, toes mobile, CMS intact Prevana dressing applied Date Time Temp Pulse Resp B/P (MAP) Pulse Ox O2 Delivery O2 Flow Rate FiO2 12/02/17 09:11 37.0 71 19 97 Room Air 12/02/17 08:39 71 138/69 (92) 12/02/17 07:05 Room Air 12/02/17 06:53 37.0 69 19 160/77 (104) 97 Room Air 12/02/17 03:45 37.0 72 18 150/68 (95) 98 Room Air 12/01/17 23:10 Room Air 12/01/17 22:46 36.7 78 17 138/62 (87) 95 Room Air 12/01/17 19:42 36.8 76 18 144/71 (95) 96 Room Air 12/01/17 15:40 Room Air 12/01/17 15:09 36.7 59 16 149/72 (97) 97 Room Air 12/01/17 12:42 36.4 66 17 148/69 (95) 97 Room Air 12/01/17 11:44 72 16 138/83 (101) 100 Room Air 12/01/17 10:40 36.4 65 19 139/74 (95) 100 Nasal Cannula 2.0 12/01/17 10:15 36.4 63 18 137/76 (96) 100 Nasal Cannula Laboratory Results 24 Hours: Test 12/02/17 05:41 White Blood Count 12.90 K/uL Red Blood Count 3.38 M/uL Hemoglobin 10.7 g/dL Hematocrit 31.0 % Mean Corpuscular Volume 91.7 fL Mean Corpuscular Hemoglobin 31.7 pg Mean Corpuscular Hemoglobin Concent 34.5 g/dl Platelet Count 155 K/uL Mean Platelet Volume 10.5 fL Neutrophils (%) (Auto) 83.2 % Lymphocytes (%) (Auto) 9.1 % Monocytes (%) (Auto) 7.4 % Eosinophils (%) (Auto) 0.0 % Basophils (%) (Auto) 0.1 % Neutrophils # (Auto) 10.74 K/uL Lymphocytes # (Auto) 1.18 K/uL Monocytes # (Auto) 0.95 K/uL Eosinophils # (Auto) 0.00 K/uL Basophils # (Auto) 0.01 K/uL Prothromb Time International Ratio 1.1 Prothrombin Time 11.5 SECONDS Assessment & Plan Assessment: Day 1 s/p Right Total Hip Arthroplasty Plan: Total hip precautions WBAT with walker assistance Pending discharge to [facility] dressing applied Pain control with PO meds Coumadin and TEDS for DVT Prophylaxis Will be discharged on 4 mg of Coumadin daily until noted otherwise F/u with Mau Mendez PA-C in two weeks Discharge Planning Discharge Planning: [facility] facility Pain Management: Percocet DVT Prophylaxis: TEDs, Coumadin Therapy: Physical Therapy, Occupational Therapy
[2017-12-02] MEDS ORDERED: WARFARIN SOD 5 MG TAB PO ONE (10:00)
== END 2017-12-02 15:23 | DRG 470 ==
LOC: C.ACU 04:49 → C.3E 06:15 → ENRESERV 09:16
PROVIDERS: ADMIT Physical Medicine & Rehabilitation Sports Medicine; ATTEND Physical Medicine & Rehabilitation Sports Medicine
PROC: 0SR90JA Replacement of Right Hip Joint with Synthetic Substitute, Uncemented, Open Approach (ICD-10-PCS; principal; 2017-12-01 07:00)
DX: M16.11 Unilateral primary osteoarthritis, right hip (principal); I10 Essential (primary) hypertension; E78.00 Pure hypercholesterolemia, unspecified; G89.29 Other chronic pain; M54.2 Cervicalgia; F32.9 Major depressive disorder, single episode, unspecified; L71.9 Rosacea, unspecified; Z72.89 Other problems related to lifestyle; Z86.19 Personal history of other infectious and parasitic diseases; Z79.899 Other long term (current) drug therapy; Z88.0 Allergy status to penicillin; Z88.1 Allergy status to other antibiotic agents

== ENCOUNTER → 2017-12-06 | Outpatient (CLI) | payer BC ==
[~2017-12-06] MED LIST changes: +OXYC-57 PO; +WARF2TAB PO
[2017-12-06 10:11] LABS: HEMATOCRIT 33.7 % (37-47); HEMOGLOBIN 11.5 g/dL (12.0-16.0); MEAN CELL VOLUME 93.4 fL (80-100); MEAN CORPUSCULAR HEMOGLOBIN 31.9 pg (25-34); MEAN CORPUSCULAR HGB CONC 34.1 g/dl (32-36); MEAN PLATELET VOLUME 10.9 fL (7.4-10.4); PLATELET COUNT 218 K/uL (130-400); RED CELL DISTRIBUTION WIDTH CV 13.1 % (11.5-14.5); RED CELL DISTRIBUTION WIDTH SD 44.4 fL (36.4-46.3); WHITE BLOOD COUNT 9.04 K/uL (4.8-10.8)
[2017-12-06 10:18] LABS: BLOOD UREA NITROGEN 19 mg/dl (7-18); CALCIUM 8.3 mg/dl (8.5-10.1); CARBON DIOXIDE 28 mmol/L (21-32); GLUCOSE 97 mg/dl (70-99); INR 1.7 (0.9-1.1); POTASSIUM 3.7 mmol/L (3.5-5.1); SODIUM 139 mmol/L (136-145)
== END | disposition home or self-care (01) ==
LOC: C.LABFOXAE 09:29
PROVIDERS: ATTEND Nurse Practitioner Family
DX: Z51.81 Encounter for therapeutic drug level monitoring (principal); Z79.899 Other long term (current) drug therapy

== ENCOUNTER → 2017-12-13 | Outpatient (CLI) | payer BC ==
[2017-12-13 09:00] LABS: INR 1.9 (0.9-1.1)
== END ==
LOC: C.LABFOXAE 08:28
PROVIDERS: ATTEND Internal Medicine
DX: M15.9 Polyosteoarthritis, unspecified (principal)

== ENCOUNTER → 2017-12-20 | Outpatient (CLI) | payer BC ==
[2017-12-20 08:42] LABS: INR 2.2 (0.9-1.1)
== END | disposition home or self-care (01) ==
LOC: C.LABFOXDH 07:43
PROVIDERS: ATTEND Internal Medicine
DX: Z47.1 Aftercare following joint replacement surgery (principal)

== ENCOUNTER → 2017-12-27 | Outpatient (CLI) | payer BC ==
[2017-12-27 08:50] LABS: INR 2.9 (0.9-1.1)
== END | disposition home or self-care (01) ==
LOC: C.LABFOXMH 08:11
PROVIDERS: ATTEND Internal Medicine
DX: Z47.1 Aftercare following joint replacement surgery (principal)

== ENCOUNTER → 2018-01-03 | Outpatient (CLI) | payer BC ==
[2018-01-03 09:32] LABS: BLOOD UREA NITROGEN 28 mg/dl (7-18); CALCIUM 8.5 mg/dl (8.5-10.1); CARBON DIOXIDE 29 mmol/L (21-32); CREATININE 1.04 mg/dl (0.60-1.20); GLUCOSE 104 mg/dl (70-99); POTASSIUM 3.7 mmol/L (3.5-5.1); SODIUM 141 mmol/L (136-145)
[2018-01-03 09:36] LABS: INR 1.4 (0.9-1.1)
== END | disposition home or self-care (01) ==
LOC: C.LABFOXMH 09:00
PROVIDERS: ATTEND Internal Medicine
DX: Z51.81 Encounter for therapeutic drug level monitoring (principal); Z79.01 Long term (current) use of anticoagulants; I10 Essential (primary) hypertension

== ENCOUNTER → 2018-01-24 | Outpatient (CLI) | payer BC | END | disposition home or self-care (01) | LOC: C.RDSM 18:28 | PROVIDERS: ATTEND Physical Medicine & Rehabilitation Sports Medicine | DX: M25.552 Pain in left hip (principal); M25.551 Pain in right hip; Z96.649 Presence of unspecified artificial hip joint; Z88.0 Allergy status to penicillin; Z88.1 Allergy status to other antibiotic agents; Z88.5 Allergy status to narcotic agent; Z91.010 Allergy to peanuts ==

== ENCOUNTER → 2018-06-06 | Outpatient (CLI) | payer BC ==
[~2018-06-06] MED LIST changes: -OXYC-57 PO; -WARF2TAB PO
--- NOTE | 2018-06-06 12:16 | DIAGNOSTIC IMAGING REPORT ---
RIGHT KNEE 3 VIEWS; LEFT KNEE 4 VIEWS CLINICAL HISTORY: Bilateral knee pain. FINDINGS: An AP standing view of both knees, a sunrise view of both knees, a tunnel view of both knees, and a crosstable lateral view of the left knee are obtained. Comparison is made to study dated 06/22/2016. The skeletal structures are osteopenic. No fracture is seen. Left knee: There is mild to moderate tricompartmental degenerative joint space narrowing, greatest in medial and patellofemoral compartments. There are tiny marginal osteophytes and patellar enthesophytes. No evidence of osteochondral lesion is seen on the tunnel image. Mild degenerative beaking is seen in the tibial spine. There is no significant joint effusion. A calcified fabella is incidentally noted. There is mild atherosclerotic calcification of the popliteal artery. Right knee: Survey images of the right knee show mild to moderate degenerative narrowing in the medial and lateral compartments. There are lateral marginal osteophytes. No evidence of osteochondral lesion is seen on the tunnel image. The overlying soft tissues are normal as visualized. IMPRESSION: 1. No acute bony abnormality is seen in either knee. 2. Osteopenia and degenerative change as above. Electronically signed by: Lawson Ramirez M.D. 06/06/2018 12:15 PM Dictated Date/Time: 06/06/2018 12:05 PM
== END | disposition home or self-care (01) ==
LOC: C.RDSM 11:17
PROVIDERS: ATTEND Physician Assistant
DX: M85.862 Other specified disorders of bone density and structure, left lower leg (principal)

== ENCOUNTER 2020-08-14 05:09 | Observation (INO) ==
--- NOTE | 2020-07-24 19:45 | PAT Medication Instructions ---
Medication Instructions Date of Service July 24, 2020 Home Medications Medication Instructions Recorded indapamide 1.25 mg tablet See Rx Instructions .ROUTE 10/03/19 .COMPLEX #30 tablet Promiseb 1 dose TOPICAL BID acetaminophen 650 mg PO Q6H PRN albuterol sulfate [Ventolin HFA] 1 puff INHALATION QID PRN atorvastatin [Lipitor] 20 mg PO HS azelaic acid 1 applic TOPICAL BID calcium carbonate-vitamin D3 [Calcium 500 + D] 1 tab PO BID cetirizine [Zyrtec] 5 mg PO HS coQ10 (ubiquinol) 100 mg PO QAM ketoprofen 1 dose TOPICAL DAILY PRN omeprazole magnesium [Prilosec OTC] 20 mg PO Q2D Refresh Plus 1 drp OPHTHALMIC (EYE) BID omega 0-gbi-gbh-fish oil [Fish Oil] 1 cap PO QPM paroxetine HCl 10 mg PO QAM potassium chloride 10 meq PO QAM indapamide 1.25 mg tablet See Rx Instructions .ROUTE .COMPLEX doxycycline hyclate 100 mg capsule 200 mg PO .COMPLEX lactobacillus combination no.8 3 billion cell capsule 3,000 mmu cells PO BID metronidazole 1 % topical gel 1 appln TOP DAILY multivitamin 1 tab PO QAM tamsulosin 0.4 mg PO QPM Continue as directed doxycycline hyclate 100 mg capsule 200 mg PO .COMPLEX (prior to dental procedures) omeprazole magnesium [Prilosec OTC] 20 mg PO Q2D STOP taking 2 weeks before surgery (or as soon as possible if surgery is within 2 weeks) coQ10 (ubiquinol) 100 mg PO QAM omega 3-pzw-dtx-fish oil [Fish Oil] 1 cap PO QPM STOP taking 24 hours before surgery Promiseb 1 dose TOPICAL BID azelaic acid 1 applic TOPICAL BID ketoprofen 1 dose TOPICAL DAILY PRN metronidazole 1 % topical gel 1 appln TOP DAILY DO NOT take the morning of surgery calcium carbonate-vitamin D3 [Calcium 500 + D] 1 tab PO BID potassium chloride 10 meq PO QAM indapamide 1.25 mg tablet See Rx Instructions .ROUTE .COMPLEX lactobacillus combination no.8 3 billion cell capsule 3,000 mmu cells PO BID multivitamin 1 tab PO QAM Take morning of surgery With a small sip of water, OTHERWISE NOTHING TO EAT OR DRINK AFTER MIDNIGHT: acetaminophen 650 mg PO Q6H PRN (okay to take up to 4 hours prior to surgery if needed) albuterol sulfate [Ventolin HFA] 1 puff INHALATION QID PRN (if needed) Refresh Plus 1 drp OPHTHALMIC (EYE) BID paroxetine HCl 10 mg PO QAM Take evening before surgery acetaminophen 650 mg PO Q6H PRN (if needed) albuterol sulfate [Ventolin HFA] 1 puff INHALATION QID PRN (if needed) atorvastatin [Lipitor] 20 mg PO HS calcium carbonate-vitamin D3 [Calcium 500 + D] 1 tab PO BID cetirizine [Zyrtec] 5 mg PO HS Refresh Plus 1 drp OPHTHALMIC (EYE) BID lactobacillus combination no.8 3 billion cell capsule 3,000 mmu cells PO BID tamsulosin 0.4 mg PO QPM Other Notes If you have any questions please call us at [phone] or [phone] or [phone] or [phone]
--- NOTE | 2020-07-25 15:16 | Anesthesiology Consultation ---
Date of Service July 25, 2020 Assessment & Plan (1) Encounter for pre-operative examination: - Per assessment on 07/25: Travel screen negative. No known COVID-19 positive contacts or current COVID-19 related symptoms. Surgeon arranging preop COVID testing. Awaiting results. - Check [facility] AM DOS Chart Review Chart Review: Acceptable Risk for Surgery (pending surgeon-ordered PCP clearance) and Patient seen in Pre Admission Testing Teaching & Discussion Pre-Anesthesia Teaching/Discussion Notes: Instructed NPO after midnight before surgery,except medications with 15 cc of water. Medication instructions provi ded according to the PAT guidelines. History Surgery Operation Date: 08/14/20 07:00 Proposed Procedures p Left Total Hip Arthroplasty - Hector Sims MD Height/Weight Height: 6 ft Weight: 99.3 kg Allergies Allergy/AdvReac Type Severity Reaction Status Date / Time peanut Allergy Intermediate Hives Verified 07/25/20 16:11 Penicillins Allergy Intermediate Rash, hives Verified 07/25/20 16:11 bacitracin Allergy Mild blisters Verified 07/19/20 13:22 polymyxin B Allergy Mild blisters Verified 07/19/20 13:22 clindamycin Allergy Unknown avoids (hx Verified 07/25/20 16:11 c. diff after use) codeine AdvReac Mild confusion Verified 07/19/20 13:22 Medications Home Medications Medication Instructions Recorded Confirmed Last Taken Promiseb 1 dose TOPICAL BID 07/11/18 07/19/20 05/18/19 acetaminophen 650 mg PO Q6H PRN 07/11/18 07/19/20 07/19/18 albuterol sulfate [Ventolin HFA] 1 puff INHALATION QID PRN 07/11/18 07/19/20 05/18/19 atorvastatin [Lipitor] 20 mg PO HS 07/11/18 07/19/20 05/18/19 azelaic acid 1 applic TOPICAL BID 07/11/18 07/19/20 05/18/19 calcium carbonate-vitamin D3 1 tab PO BID 07/11/18 07/19/20 05/18/19 [Calcium 500 + D] cetirizine [Zyrtec] 5 mg PO HS 07/11/18 07/19/20 05/18/19 coQ10 (ubiquinol) 100 mg PO QAM 07/11/18 07/19/20 05/18/19 ketoprofen 1 dose TOPICAL DAILY PRN 07/11/18 07/19/20 Unknown omeprazole magnesium [Prilosec OTC] 20 mg PO Q2D 07/11/18 07/19/20 05/18/19 Refresh Plus 1 drp OPHTHALMIC (EYE) BID 05/17/19 07/19/20 Unknown omega 6-odk-jtu-fish oil [Fish Oil] 1 cap PO QPM 05/17/19 07/19/20 05/18/19 paroxetine HCl 10 mg PO QAM 05/17/19 07/19/20 05/18/19 potassium chloride 10 meq PO QAM 05/17/19 07/19/20 05/18/19 indapamide 1.25 mg tablet See Rx Instructions .ROUTE 10/03/19 07/19/20 Unknown .COMPLEX #30 tablet doxycycline hyclate 100 mg capsule 200 mg PO .COMPLEX cap 12/26/19 07/19/20 Unknown lactobacillus combination no.8 3 3,000 mmu cells PO BID 12/26/19 07/19/20 Unknown billion cell capsule metronidazole 1 % topical gel 1 appln TOP DAILY 12/26/19 07/19/20 Unknown multivitamin 1 tab PO QAM 07/19/20 07/19/20 Unknown tamsulosin 0.4 mg PO QPM 07/19/20 07/19/20 Unknown Past Medical History Medical History Anxiety Benign paroxysmal positional vertigo Degenerative disc disease Depression GERD (gastroesophageal reflux disease) Hearing deficit B/L BLANCHARD Hypercholesterolemia Hyperglycemia Hyperlipidemia Hypertension Lumbar spinal stenosis Osteoarthritis Osteoporosis Rosacea Trochanteric bursitis Exercise / Class Metabolic Activity III < 4 Walking/Shop/Light housework Past Family History Family History Daughter PONV (postoperative nausea and vomiting) Other No significant family history Past Surgical History Surgical History H/O tooth extraction History of adenoidectomy History of arthroscopy LEFT KNEE History of bilateral tubal ligation History of cataract surgery History of colonoscopy History of tonsillectomy History of total hip arthroplasty RT HIP Past Anesthesia History No Family Hx of Anesthesia Complications and Other (remote episode of post-op itching, no issue with more recent surgery/anesthesia) History of PONV No Hx of PONV and Hx of Motion Sickness Social History Smoking Status: Never smoker Do You Dip or Chew Tobacco: No Hx Alcohol Use: Yes Alcohol type: beer and wine alcohol intake frequency: other Alcohol Intake Frequency Comment: 0-1 oz per day Hx Substance Use: No substance use type: does not use Review of Systems Patient denies chest pain, shortness of breath, fever, chills, cough, wheezing, palpitations. Physical Exam Vital Signs VITALS BP 113/71 P 80 TEMP 97.9 SP02 96%RA RESP 18 PHYSICAL Full neck and c-spine range of motion. Full TMJ range of motion. TMD 2 finger breaths (small chin) Mallampati Score 3 Dentition: intact, + several crowns Lungs: clear throughout to auscultation Cardiac: regular rate and rhythm, no murmurs noted Spine: normal Carotid arteries: negative bruit Extremities: no edema Testing Laboratory Results 07/25/20 15:55 PT 10.8 Seconds (9.0-12.0) 07/25/20 15:55 INR 1.0 (0.9-1.1) 07/25/20 15:55 APTT 25.5 Seconds (21.0-31.0) 07/25/20 15:55 Urine Color Yellow 07/25/20 15:55 Urine Appearance Clear (Clear) 07/25/20 15:55 Urine pH 7.5 (4.5-7.5) 07/25/20 15:55 Ur Specific [place]ondon 1.014 (1.000-1.030) 07/25/20 15:55 Urine Protein Negative (Negative) 07/25/20 15:55 Urine Glucose (UA) Negative (Negative) 07/25/20 15:55 Urine Ketones Negative (Negative) 07/25/20 15:55 Urine Nitrite Negative (Negative) 07/25/20 15:55 Ur Leukocyte Esterase Negative (Negative) 07/25/20 15:55 Blood Type A Positive 07/25/20 15:55 Antibody Screen NEGATIVE 07/25/20 15:55 06/13/20 (DOS 08/14: per patient, these were reviewed by surgeon's office and deemed okay for DOS, agreeable with anesthesia) SODIUM 142 POTASSIUM 3.7 CHLORIDE 110 CO2 27 BUN 20 CREATININE 24.4 GLUCOSE 99 HGBA1C 6.0% Electrocardiogram Date: 07/25/20 SR with first degree AVB at 63bpm. No significant change compared to 11/17/2017. Chest X-Ray Date: 07/11/20 FINDINGS: PA and lateral chest radiographs are compared to study dated 09/09/2017. The cardiomediastinal silhouette is unremarkable noting atherosclerotic calcification of the thoracic aorta. There is bibasilar scar ring/atelectasis. Scattered calcified granulomas are observed. There is no airspace consolidation or pleural effusion. There is no pneumothorax. The skeletal structures are osteopenic. The bony thorax appears intact. IMPRESSION: No active disease in the chest. Stress Test Date: 07/03/20 Type: DSE Negative DSE/stress ekg for myocardial ischemia at 87% MPHR. No induced chest pain. LVEF 65%. Mild cLVH. No RWMA. No significant valvular disease. Pulmonary Function Test Date: 07/11/20 Normal spirometry without bronchodilator response. Lung volumes normal. DLCO lower limits of normal.
[2020-07-25 16:33] LABS: Basophils # (auto) 0.02 K/uL (0-0.2); Basophils % (auto) 0.3 %; Eosinophils # (auto) 0.07 K/uL (0-0.5); Hematocrit (blood only) 40.2 % (37-47); Hemoglobin 13.7 g/dL (12.0-16.0); Immature Granulocytes # (auto) 0.01 K/uL (0.00-0.02); Immature Granulocytes % (auto) 0.1 %; Lymphocytes # (auto) 1.49 K/uL (1.2-3.4); Lymphocytes % (auto) 20.6 %; Mean Corpuscular Hemoglobin 30.9 pg (25-34); Mean Corpuscular Hgb Conc 34.1 g/dL (32-36); Mean Corpuscular Volume 90.7 fL (80-100); Mean Platelet Volume 10.7 fL (7.4-10.4); Monocytes # (auto) 0.52 K/uL (0.11-0.59); Monocytes % (auto) 7.2 %; Neutrophils # (auto) 5.12 K/uL (1.4-6.5); Neutrophils % (auto) 70.8 %; Platelet Count 174 K/uL (130-400); RDW Standard Deviation 42.8 fL (36.4-46.3); Red Blood Count 4.43 M/uL (4.2-5.4); White Blood Count 7.23 K/uL (4.8-10.8)
[2020-07-25 16:35] LABS: Appearance Urine Clear (Clear); Bilirubin Urine Negative (Negative); Blood Urine Negative (Negative); Color Urine Yellow; Glucose Urine UA Negative (Negative); Ketones Urine Negative (Negative); Leukocyte Esterase Urine Negative (Negative); Nitrite Urine Negative (Negative); Protein Urine Negative (Negative); Specific Gravity Urine 1.014 (1.000-1.030); Urobilinogen Urine Negative (Negative); pH Urine 7.5 (4.5-7.5)
[2020-07-25 16:45] LABS: Partial Thromboplastin Ratio 0.9; Partial Thromboplastin Time 25.5 Seconds (21.0-31.0); Prothrombin Time 10.8 Seconds (9.0-12.0)
--- NOTE | 2020-07-26 13:02 | Electrocardiogram Report ---
Test Reason : Blood Pressure : / mmHG Vent. Rate : 063 BPM Atrial Rate : 063 BPM P-R Int : 218 ms QRS Dur : 082 ms QT Int : 438 ms P-R-T Axes : 071 040 076 degrees QTc Int : 448 ms Sinus rhythm with 1st degree A-V block Otherwise normal ECG When compared with ECG of 17-NOV-2017 13:39, No significant change was found Confirmed by Timothy Zarate ([id number]) on 07/26/2020 1:02:05 PM Referred By: Hector Sims Confirmed By:Timothy Zarate
--- NOTE | 2020-08-07 16:25 | History & Physical Report ---
Date of Service August 07, 2020 Assessment & Plan (1) Degenerative joint disease of left hip: Postoperative prescriptions for Percocet and Coumadin will be provided at discharge from the hospital. Anticipate discharge to home with home health services. She would like to go to [facility] and may also spend some time at the facility there before returning to her apartment. She will obtain medical clearance from her PCP. Preoperative lab work, EKG, and chest x-ray have been ordered. PDMP was checked and there are no concerning findings. The patient is aware of COVID-19 risks associated with surgery. She currently is asymptomatic of any COVID-19 symptoms. She will obtain nasal swab testing prior to surgery. History of Present Illness Chief Complaint: Left hip pain Primary Care Provider: [facility] This 85-year-old white female presents today for left hip pain for almost a year. She is scheduled to undergo a left total hip arthroplasty on 08/14/2020. Pain has become worse with time. She has tried activity modification as well as oral pain medication and intra-articular cortisone injection without lasting relief. Pain is worse with weightbearing. It is affecting her ADLs. No numbness or tingling. She has a history of previous right total hip arthroplasty and has done well with that. She elects to proceed with the same on the left. Preoperative imaging has been obtained. Allergies Allergy/AdvReac Type Severity Reaction Status Date / Time peanut Allergy Intermediate Hives Verified 07/29/20 14:15 Penicillins Allergy Intermediate Rash, hives Verified 07/29/20 14:15 bacitracin Allergy Mild blisters Verified 07/29/20 14:15 polymyxin B Allergy Mild blisters Verified 07/29/20 14:15 clindamycin Allergy Unknown avoids (hx Verified 07/29/20 14:15 c. diff after use) codeine AdvReac Mild confusion Verified 07/29/20 14:15 Home Medications Home Medications Medication Instructions Recorded Confirmed Type Promiseb 1 dose TOPICAL BID 07/11/18 07/29/20 History acetaminophen 650 mg PO Q6H PRN 07/11/18 07/29/20 History albuterol sulfate [Ventolin HFA] 1 puff INHALATION QID PRN 07/11/18 07/29/20 History atorvastatin [Lipitor] 20 mg PO HS 07/11/18 07/29/20 History azelaic acid 1 applic TOPICAL BID 07/11/18 07/29/20 History calcium carbonate-vitamin D3 1 tab PO BID 07/11/18 07/29/20 History [Calcium 500 + D] cetirizine [Zyrtec] 5 mg PO HS 07/11/18 07/29/20 History coQ10 (ubiquinol) 100 mg PO QAM 07/11/18 07/29/20 History ketoprofen 1 dose TOPICAL DAILY PRN 07/11/18 07/29/20 History omeprazole magnesium [Prilosec OTC] 20 mg PO Q2D 07/11/18 07/29/20 History Refresh Plus 1 drp OPHTHALMIC (EYE) BID 05/17/19 07/29/20 History omega 4-kfg-uwl-fish oil [Fish Oil] 1 cap PO QPM 05/17/19 07/29/20 History paroxetine HCl 10 mg PO QAM 05/17/19 07/29/20 History potassium chloride 10 meq PO QAM 05/17/19 07/29/20 History doxycycline hyclate 100 mg capsule 200 mg PO .COMPLEX cap 12/26/19 07/29/20 History lactobacillus combination no.8 3 3,000 mmu cells PO BID 12/26/19 07/29/20 History billion cell capsule metronidazole 1 % topical gel 1 appln TOP DAILY 12/26/19 07/29/20 History multivitamin 1 tab PO QAM 07/19/20 07/29/20 History tamsulosin 0.4 mg PO QPM 07/19/20 07/29/20 History indapamide 1.25 mg tablet 1.25 mg PO DAILY #90 tab 08/02/20 Rx Past Med/Surg History Medical History (Updated 08/07/20 @ 16:24 by Mau Mendez PA-C) Anxiety Benign paroxysmal positional vertigo Degenerative disc disease Depression GERD (gastroesophageal reflux disease) Hearing deficit B/L BLANCHARD Hypercholesterolemia Hyperglycemia Hyperlipidemia Hypertension Lumbar spinal stenosis Osteoarthritis Osteoporosis Rosacea Trochanteric bursitis Surgical History (Updated 08/07/20 @ 16:23 by Mau Mendez PA-C) H/O tooth extraction History of adenoidectomy History of arthroscopy LEFT KNEE History of bilateral tubal ligation History of cataract surgery History of colonoscopy History of tonsillectomy History of total hip arthroplasty RT HIP 12/01/17 Family History Daughter PONV (postoperative nausea and vomiting) Other No significant family history Social History (Updated 08/07/20 @ 16:20 by Mau Mendez PA-C) Smoking Status: Never smoker Second Hand Exposure: No; Hx Alcohol Use: Yes Alcohol type: beer and wine Hx Substance Use: No Preferred Language: Belarusian Communication Ability: Effective Hearing Ability: Normal Vibration Analyst Required: No Beliefs That Will Affect Care: None marital status: Current Living Situation: Spouse Current Living Situation Comment: [facility] current occupational status: retired Feels Safe at Home: Yes Assistive Devices: Glasses, Hearing Aid - Bilateral and Walker Review of Systems Review of Systems: All systems reviewed & are unremarkable except as noted in HPI & below 10 systems were reviewed. Physical Exam Physical Exam: Vitals: Height 181 cm, weight 95.2 kilograms, BMI 29.1. General: Well-developed, well-nourished, elderly white female in no acute distress. Sitting in a chair. Alert and oriented. Skin: Warm and dry with fair turgor. No rashes or lesions. No ecchymosis or erythema. HEENT: Normocephalic, atraumatic. Eyes: PERRLA, EOMI. Nares and oropharynx exams deferred due to COVID precautions. Heart: RRR, no MGR. Lungs: Clear to auscultation bilaterally, no crackles, rhonchi or wheezing, good air movement. Abdomen: Mildly obese, bowel sounds present x4, soft, nontender. No organomegaly. No masses. Musculoskeletal: Left hip has no obvious asymmetry or deformity. No discomfort with palpation over the buttock, IT band, or greater trochanter. There is soreness with palpation over the anterior flexion crease. Supple motion of the hip with good flexion to around 100 degrees. External rotation of 35 degrees, internal rotation of around only 20 degrees. These are all limited by pain. Ambulates with a slightly antalgic gait. Neurologic: Gross sensation is intact across both lower extremities by soft touch. Peripheral pulses are 2+. Results & Data Results & Data ([facility]) Diagnostic Findings Radiographic imaging previously obtained shows [id number] osteoarthritic change with loss of joint space, subchondral sclerosis and periarticular osteophytes. There is also an area of lucency suggesting AVN.
[2020-08-14] MEDS ORDERED: TRANEXAMIC ACID 1,000 MG **IV Pre-op IV SCH (06:00)
[2020-08-14] MEDS ORDERED: LR 60ML/HR IV SCH (06:00)
[2020-08-14] MEDS ORDERED: ROPIVACAINE 0.5% HCL/PF 150 MG, BUPIVACAINE 0.5% MPF 30 ML, EPINEPHrine 0.15 MG, Ketoro... INFIL SCH (06:00)
[2020-08-14] MEDS ORDERED: LR 500ML BOLUS, THEN 15ML/HR IV SCH (06:00)
[2020-08-14] MEDS ORDERED: ceFAZolin 2000MG 2,000 MG/15 ML SYR IV SCH (06:00)
--- NOTE | 2020-08-14 06:19 | History & Physical Bridge Note ---
Date of Service August 14, 2020 History & Physical Bridge Note I have examined the patient, reviewed the History & Physical and in the interval since the performance of the History & Physical I have noted the following changes of clinical significance:consent obtained/site verified/covid screen negative. no changes noted
[2020-08-14] MEDS ORDERED: BUPIVACAINE 0.5 % 5 MG/1 ML PF 10ML VIAL ONE (06:23)
[2020-08-14] MEDS ORDERED: ORTHO JOINT ANESTHETIC ONE (06:32)
[2020-08-14] MEDS ORDERED: fentaNYL citrate 100 MCG/2 ML VIAL ONE (06:36)
[2020-08-14] MEDS ORDERED: MIDAZOLAM HCL 1 MG/ML 2ML VIAL ONE (06:37)
[2020-08-14] MEDS ORDERED: ePHEDrine sulfate 50 MG/ML AMP IV PRN (07:12)
[2020-08-14] MEDS ORDERED: ATROPINE SULFATE 0.1 MG/ML 10ML SYR IV PRN (07:12)
[2020-08-14] MEDS ORDERED: fentaNYL citrate 100 MCG/2 ML VIAL IV PRN (07:12)
[2020-08-14] MEDS ORDERED: ONDANSETRON INJ 2 MG/ML 2 ML VIAL IV PRN ×2 (07:12→10:12)
[2020-08-14] MEDS ORDERED: PROPOFOL IV EMULSION 10 MG/ML 20 ML VIAL IV ONE (07:38)
[2020-08-14] MEDS ORDERED: ONDANSETRON INJ 2 MG/ML 2 ML VIAL ONE (07:38)
[2020-08-14] MEDS ORDERED: LIDOCAINE HCL 2% 2 ML VIAL/AMP(20MG/ML) INFIL ONE (07:38)
--- NOTE | 2020-08-14 08:24 | Post Operative Brief Note ---
Immediate Post Op Note v1 Date of Surgery August 14, 2020 Pre & Post Diagnosis Operation Date: 08/14/20 07:00 Pre-Op Diagnosis: Degenerative Joint Disease Left Hip, Avascular Necrosis Post-Op Diagnosis: Degenerative Joint Disease Left Hip, Avascular Necrosis I identified the patient and participated in the time-out.: Yes Procedure Operation Date: 08/14/20 07:00 Actual Procedures p Left Total Hip Arthroplasty, Uncemented(Left) - Hector Sims MD ebl 100cc Surgeon Hector Sims MD Shipping And Receiving janes/marlon Estimated Blood Loss 100 Findings Consistent with Post-Op Diagnosis
--- NOTE | 2020-08-14 08:31 | Operative Report ---
Post Operative Report Pre & Post Diagnosis Operation Date: 08/14/20 07:00 Pre-Op Diagnosis: Degenerative Joint Disease Left Hip, Avascular Necrosis Post-Op Diagnosis: Degenerative Joint Disease Left Hip, Avascular Necrosis I identified the patient and participated in the time-out.: Yes Procedure Operation Date: 08/14/20 07:00 Actual Procedures p Left Total Hip Arthroplasty, Uncemented(Left) - Hector Sims MD Surgeon BERNADETTE Sims MD Tank Terminal Gauger janes/marlon ODONNELL Estimated Blood Loss 100 Findings Consistent with Post-Op Diagnosis Specimens see operative report Drains none Complications none Disposition Accompanied Patient To Recovery: Yes Disposition: Recovery Room Indications This 85-year-old white female presented to the office with complaints of intractable left hip pain. She had tried conservative care measures including physical therapy, activity modification, injection therapy, and oral pain medication, without improvement. She elected to proceed with surgical intervention after being educated about potential risks and outcomes. Preoperative imaging was obtained. She has a history of right total hip arthroplasty and has done well with it. She elects to proceed with the same on the left. Description of Procedure Patient was administered a spinal anesthetic and then taken to the operating ro om where she was given sedation. She was prepped and draped in the usual sterile fashion. Please see Dr. Sims's operative report for specifics of the procedure. I was present for the entire case from initial patient positioning through final wound closure. Assistance was provided in tissue retraction, hemostasis, trial implant placement, final implant placement, and final wound closure. Patient was taken to the recovery room in satisfactory condition. I attest to the content of the Intraoperative Record and any orders documented therein. Any exceptions are noted below.
--- NOTE | 2020-08-14 08:36 | Operative Report ---
Post Operative Report Pre & Post Diagnosis Operation Date: 08/14/20 07:00 Pre-Op Diagnosis: Degenerative Joint Disease Left Hip, Avascular Necrosis Post-Op Diagnosis: Degenerative Joint Disease Left Hip, Avascular Necrosis I identified the patient and participated in the time-out.: Yes Procedure Operation Date: 08/14/20 07:00 Actual Procedures p Left Total Hip Arthroplasty, Uncemented(Left) - Hector Sims MD Surgeon Hector Sims MD Recreation Instructor janes/marlon ODONNELL Estimated Blood Loss 100 Findings Consistent with Post-Op Diagnosis Specimens femoral head Anesthesia Type Spinal MAC Complications none Disposition Accompanied Patient To Recovery: Yes Disposition: Recovery Room Description of Procedure As Per 's note I assisted in scrubbing and draping, instruments handling, certain parts of the procedure and wound closure I attest to the content of the Intraoperative Record and any orders documented therein. Any exceptions are noted below.
[2020-08-14] MEDS: VANCOMYCIN HCL 1,500 MG in SODIUM CHLORIDE 0.9% 500 ML IV SCH ×2 (08:50→21:01)
--- NOTE | 2020-08-14 09:04 | XRay Report ---
AP PELVIS History: Left total hip arthroplasty. Degenerative arthritis. Postop. FINDINGS: The patient is status post a left total hip arthroplasty. The hardware is intact. No fractu re or dislocation. Skin kevan are in place. Prior right total arthroplasty. IMPRESSION: Left total hip arthroplasty. No evidence for hardware complication. ACT 112: Negative or not required by law. Electronically signed by: Aniceto Lopez M.D. 08/14/2020 9:03 AM
--- NOTE | 2020-08-14 09:17 | Operative Report (OR) ---
DATE OF OPERATION: 08/14/2020 SURGEON: Hector Sims MD. QUILT SEWER: Shirley. SECOND QUILT SEWER: Mau Mendez PA-C. PREOPERATIVE DIAGNOSIS: Osteoarthritis, left hip. POSTOPERATIVE DIAGNOSIS: Osteoarthritis, left hip. OPERATION PERFORMED: Left noncemented total hip replacement. SUMMARY OF IMPLANTS: Size 52 cup hole eliminator, size 25 x 6.5 screw, 36 x 52 neutral liner, 4 standard Tri-Lock, 36+8.5 ceramic head. ESTIMATED BLOOD LOSS: 100 mL. CRYSTALLOID: Per anesthesia. PERIOPERATIVE SITUATION: Medically cleared female with intractable hip pain, had hip replacement done on the other side. Wants to proceed with hip replacement on this side. She understands the risks and consequences from previous procedure as well as re-discussion. DESCRIPTION OF PROCEDURE: The patient was appropriately identified, site verified, consent verified. Antibiotics confirmed as being given. The left lower extremity was prepped and draped in usual routine fashion with the patient in right lateral decubitus position. A posterior approach to the hip was performed. Sharp dissection carried through the skin, blunt dissection through the fascia. The IT band and gluteus john fascia were then split. A deep retractor placed. Care taken to protect the sciatic nerve. Short external rotators were then released. The capsule was then opened. The hip was then dislocated. The femoral neck was resected. It required one revision cut. Acetabular exposure was obtained after the capsule was released and preserved. The labrum was excised. Serial reaming carried up to 52 and a 52 cup impacted into appropriate anteversion and inclination. It was then fixed with an additional 6.5 x 25 screw with excellent purchase. The trial liner was then seated. The femur was then flexed and internally rotated. The proximal femur prepared with a rongeur, crap game box person, lateralizing rasp, and serial broaching up to a size #4. Trial reduction with an 8.5 provided superb stability and good leg lengths. The hip was then dislocated. All remaining trial elements were removed. The hole eliminator seated, permanent liner seated, permanent stem and neck seated and then the hip reduced. It was stable in all planes. Leg lengths were excellent. The wound was irrigated one final time and closed with #2 Vicryl for the capsule and the short external rotators, #2 Vicryl for the deep fascia, 2-0 Vicryl for subcutaneous tissue and stainless steel clips for skin. EBL was 100 mL. Bone pathology pending. DVT prophylaxis. I attest to the content of the Intraoperative Record and any orders documented therein. Any exception s are noted below.
[2020-08-14] MEDS ORDERED: diphenhydrAMINE 50 MG/ML VIAL IV PRN (10:12)
[2020-08-14] MEDS ORDERED: METOCLOPRAMIDE HCL INJ 5 MG/ML 2 ML VIAL IV PRN (10:12)
[2020-08-14] MEDS ORDERED: SODIUM CHLORIDE 0.9% 1000ML 1,000 ML IV SCH (10:12)
[2020-08-14] MEDS ORDERED: MAGNESIUM HYDROXIDE SUSP 30 ML UDC PO PRN (10:12)
[2020-08-14] MEDS ORDERED: NALOXONE HCL 0.4 MG/1 ML VIAL/CARP IV PRN (10:12)
[2020-08-14] MEDS ORDERED: bisacodyL 10 MG SUPP PR PRN (10:12)
[2020-08-14] MEDS ORDERED: oxyCODONE HCL IR 5 MG TAB (IMMEDIATE RELEASE) PO PRN (10:12)
[2020-08-14] MEDS ORDERED: HYDROmorphone INJ 0.5 MG/0.5 ML SYR IV PRN (10:12)
[2020-08-14] MEDS ORDERED: ALUMINUM/MAGNESIUM SUSP 30 ML UDC PO PRN (10:12)
[2020-08-14] MEDS ORDERED: ALBUTEROL HFA 8 GM INHALER INH PRN (10:12)
[2020-08-14] MEDS: PARoxetine HCL 10 MG TAB PO SCH (11:23)
[2020-08-14] MEDS: KETOROLAC TROMETHAMINE 15 MG/ML VIAL IV SCH ×3 (11:50→22:32)
--- NOTE | 2020-08-14 11:57 | Progress Notes ---
DATE: 08/14/2020 SUBJECTIVE: Postop check status post left total hip replacement. The patient is sitting up in bed comfortably. She has no major issues. Complaining a little bit of a scratchy eye on the left. Exam does not reveal anything obvious. OBJECTIVE: Vital signs are stable. She is afebrile. Neurovascular check of the femoral sciatic nerve is normal. Hip is located. Wound dressing clean, dry and intact. Postop x-rays look excellent. ASSESSMENT: Status post left total hip replacement, doing well. Continue with postoperative care pathway. Mobilize to chair. Hep-lock IV when she is eating well. With respect to her eye, we will give her some moisturizing drops.
--- NOTE | 2020-08-14 12:03 | Discharge Summary (DS) ---
CHIEF COMPLAINT: Left hip pain. HISTORY OF PRESENT ILLNESS: The patient underwent an elective left total hip replacement. Hospital course to date has been uneventful. She will return to [facility] to a retirement facility level for a short timeframe. MEDICATIONS: Med reconciliation sheet as noted in the chart. Quite extensive. This will not be duplicated here. Please see med rec sheet. PAST MEDICAL HISTORY: Remarkable for anxiety, paroxysmal positional vertigo, degenerative disc disease, depression, GERD, hearing deficit, hypercholesterolemia, hyperglycemia, hyperlipidemia, hypertension, lumbar spinal stenosis, osteoarthritis, osteoporosis, rosacea, trochanteric bursitis. PAST SURGICAL HISTORY: Remarkable for adenoidectomy, arthroscopies, tooth extraction, tubal ligations, cataract surgery, tonsillectomy and right hip replacement. FAMILY HISTORY: Does not reveal anything significant, some postoperative nausea and vomiting. SOCIAL HISTORY: Reveals she is , lives over in [facility]. Never smoked, secondhand exposure minimal. Alcohol, social. Feels safe in her living environment. REVIEW OF SYSTEMS: Reveals no chest pain, shortness of breath, fever, chills, nausea, vomiting or headache. Postoperative x-rays look excellent. ASSESSMENT: Doing well status post left total hip replacement. Continue per care pathway. Discharge to facility tomorrow if she does well tonight.
[2020-08-14] MEDS: POTASSIUM CHLORIDE 10 MEQ TABCR PO SCH (12:47)
[2020-08-14] MEDS: MULTIVITAMIN TAB PO SCH (12:48)
[2020-08-14] MEDS: DOCUSATE SODIUM 100 MG CAP PO SCH ×2 (12:48→20:51)
[2020-08-14] MEDS: INDAPAMIDE 1.25 MG TAB PO SCH (12:48)
[2020-08-14] MEDS: ORTHO WARFARIN NOMOGRAM SCH (12:59)
[2020-08-14] MEDS: ACETAMINOPHEN 500 MG TAB PO SCH ×2 (13:57→21:09)
--- NOTE | 2020-08-14 13:59 | Anesthesiology Progress Note ---
Date of Service August 14, 2020 Anesthesia Post Procedure Vital Signs Vital Signs: Temp Pulse Pulse Resp BP BP Pulse Ox 08/14/20 12:51 36.7 C 73 18 141/72 H 96 08/14/20 11:55 36.4 C L 71 17 150/71 H 96 08/14/20 11:01 36.4 C L 64 18 158/77 H 96 08/14/20 10:32 36.7 C 66 18 144/78 H 95 08/14/20 09:55 36.4 C L 65 18 149/71 H 96 08/14/20 09:40 61 18 154/64 H 99 08/14/20 09:30 60 17 143/68 H 95 08/14/20 09:20 65 18 132/73 96 08/14/20 09:10 36.4 C L 61 16 134/61 97 08/14/20 09:00 62 13 151/68 H 100 08/14/20 08:50 65 12 136/67 100 08/14/20 08:40 67 22 136/61 100 08/14/20 08:32 36.5 C 69 19 123/62 96 08/14/20 06:27 36.8 C 67 16 169/85 H 96 08/14/20 05:48 36.5 C 74 16 177/80 H 95 Pain Intensity Left Hip: Pain Intensity: 0 Transfer of Care Handoff Completed per policy Notes Mental Status: alert / awake / arousable and participated in evaluation Patient Amnestic to Procedure: Yes Nausea / Vomiting: adequately controlled Pain: adequately controlled Airway Patency, RR, SpO2: stable & adequate BP & HR: stable & adequate Hydration State: stable & adequate Neuraxial Anesthesia: was administered and sensory block is resolving Anesthetic Complications: no major complications apparent and Pt Satisfied with anesthetic care
[2020-08-14] MEDS: ceFAZolin 2000MG 2,000 MG/15 ML SYR IV SCH ×2 (14:00→22:32)
[2020-08-14] MEDS ORDERED: TRANEXAMIC ACID / 0.7% NACL 1,000 MG/100 ML BAG IV SCH (14:37)
[2020-08-14] MEDS ORDERED: WARFARIN SOD 5 MG TAB PO ONE (16:00)
[2020-08-14] MEDS: ASCORBIC ACID 500 MG TAB PO SCH (17:40)
[2020-08-14] MEDS: FERROUS GLUCONATE 324 MG TAB PO SCH (17:40)
[2020-08-14] MEDS: ARTIFICIAL TEARS OP SCH (20:51)
[2020-08-14] MEDS ORDERED: TAMSULOSIN HCL 0.4 MG CAP PO SCH (21:00)
[2020-08-14] MEDS ORDERED: ATORVASTATIN 20 MG TAB PO SCH (21:00)
[2020-08-14] MEDS ORDERED: CETIRIZINE HCL 10 MG TABLET PO SCH (21:00)
[2020-08-14] MEDS ORDERED: SENNA 8.6 MG TAB PO SCH (21:00)
[2020-08-15] MEDS: ACETAMINOPHEN 500 MG TAB PO SCH ×2 (05:32→13:32)
[2020-08-15] MEDS: KETOROLAC TROMETHAMINE 15 MG/ML VIAL IV SCH (05:33)
[2020-08-15 06:09] LABS: Basophils # (auto) 0.01 K/uL (0-0.2); Basophils % (auto) 0.1 %; Eosinophils # (auto) 0.02 K/uL (0-0.5); Eosinophils % (auto) 0.2 %; Hematocrit (blood only) 32.2 % (37-47); Hemoglobin 11.1 g/dL (12.0-16.0); Immature Granulocytes # (auto) 0.01 K/uL (0.00-0.02); Immature Granulocytes % (auto) 0.1 %; Lymphocytes # (auto) 1.16 K/uL (1.2-3.4); Lymphocytes % (auto) 11.2 %; Mean Corpuscular Hemoglobin 31.4 pg (25-34); Mean Corpuscular Hgb Conc 34.5 g/dL (32-36); Mean Platelet Volume 10.7 fL (7.4-10.4); Monocytes # (auto) 0.73 K/uL (0.11-0.59); Neutrophils # (auto) 8.43 K/uL (1.4-6.5); Neutrophils % (auto) 81.4 %; Platelet Count 137 K/uL (130-400); RDW Coefficient of Variation 12.9 % (11.5-14.5); RDW Standard Deviation 43.2 fL (36.4-46.3); Red Blood Count 3.54 M/uL (4.2-5.4); White Blood Count 10.36 K/uL (4.8-10.8)
[2020-08-15 06:18] LABS: INR 1.1 (0.9-1.1); Prothrombin Time 11.8 Seconds (9.0-12.0)
[2020-08-15 06:39] LABS: BUN Creatinine Ratio 21.4 (10-20); Calcium 8.2 mg/dl (8.5-10.1); Creatinine Clr Calc Pharmacy 56.5 ml/min; Est GFR (African American) 62.5; Est GFR (Non-African American) 53.9; Potassium 3.5 mmol/L (3.5-5.1)
--- NOTE | 2020-08-15 06:59 | Progress Notes ---
DATE: 08/15/2020 SUBJECTIVE: Postop rounds check. Postop day #1 status post left total hip replacement. The patient is doing well and has no major issues. She has a little bit of urinary retention and has a long history of that. Has no fever, chills, nausea, vomiting, or headache. LABORATORY WORK: A.m. labs are excellent. Hematocrit stable at 32. INR is 1.1. Electrolytes pending. ASSESSMENT AND PLAN: Doing well. Wound dressing clean, dry and intact. Femoral sciatic nerve functioning well. Hip motion, supple, pain free. At this point in time, can be transferred back to her facility at a skilled level. Will ask for a straight cath this morning if she does not void by 7:00. She is already on Flomax. She has a workup planned in late October or early November. No sign of urinary tract infection at this point, but no need to be concerned about that and need be observant of that. Coumadin dose per nomogram. Discharged/transferred today.
[2020-08-15] MEDS ORDERED: dexAMETHasone 10 MG in SYRINGE 0 ML IV SCH (08:00)
[2020-08-15 08:33] LABS: Appearance Urine Clear (Clear); Bilirubin Urine Negative (Negative); Blood Urine Negative (Negative); Color Urine Yellow; Glucose Urine UA Negative (Negative); Ketones Urine Negative (Negative); Leukocyte Esterase Urine Negative (Negative); Nitrite Urine Negative (Negative); Protein Urine Negative (Negative); Specific Gravity Urine 1.017 (1.000-1.030); Urobilinogen Urine Negative (Negative); pH Urine 5.5 (4.5-7.5)
[2020-08-15] MEDS: FERROUS GLUCONATE 324 MG TAB PO SCH (08:55)
[2020-08-15] MEDS: PARoxetine HCL 10 MG TAB PO SCH (08:56)
[2020-08-15] MEDS: MULTIVITAMIN TAB PO SCH (08:56)
[2020-08-15] MEDS: DOCUSATE SODIUM 100 MG CAP PO SCH (08:56)
[2020-08-15] MEDS: ASCORBIC ACID 500 MG TAB PO SCH (08:57)
[2020-08-15] MEDS: POTASSIUM CHLORIDE 10 MEQ TABCR PO SCH (08:57)
[2020-08-15] MEDS: INDAPAMIDE 1.25 MG TAB PO SCH (08:57)
[2020-08-15] MEDS: ARTIFICIAL TEARS OP SCH (08:59)
[2020-08-15] MEDS ORDERED: PANTOprazole 40 MG TAB PO SCH (09:00)
--- NOTE | 2020-08-15 11:04 | Orthopedic Progress Note ---
Date of Service August 15, 2020 Assessment & Plan (1) Status post total hip replacement, left: Patient's dressings were changed today by me. They will be left in place until Wednesday, at which time they can be changed as needed for soiling. Coumadin today per nomogram. Take Coumadin daily until INR is between 1.8 and 2.2, and then adjust accordingly. PT/OT today Anticipate discharge to [facility] for shelter care later today Follow-up in the office in 2 weeks as scheduled for staple removal written discharge instructions have been provided. Prescriptions for Percocet and Coumadin have been sent into [facility] pharmacy. Admission and Anticipated Discharge Date Admission Date: August 14, 2020 Subjective Patient seen in her room this morning. She states she is tired from not sleeping well last night. She denies any significant hip pain. She states she is surprised at how well she can move compared to her last surgery. She denies any chest pain, shortness of breath, nausea, vomiting, or abdominal pain. She feels ready to return to [facility] today. She has a history of urinary retention. She complains of some lower abdominal and bladder pressure last night and this morning, and some urethral discomfort when attempting to urinate. No other complaints. She has eaten breakfast. Review of Systems Review of Systems: Unchanged from yesterday Physical Exam Physical Exam: General: Well-developed, well-nourished, elderly white female, in no acute distress. Laying on her bed. Alert and oriented. Conversive. Skin: Warm and dry with good turgor. No rashes. Patient has an intact postsurgical dressing on the left hip. Expected ecchymosis around her incision. No significant edema. Musculoskeletal: Left hip evaluation reveals the intact postsurgical dressing. Upon removal, kevan are intact. Wound edges are well approximated. No active drainage. There is a small amount of dried blood on her postsurgical dressings. She is moving the left hip and left knee well. She moves easily in bed. She has already been out of bed and ambulatory using her walker last night. Intact motor function of the ankle and toes. Neurologic: Gross sensation is intact across the left leg by soft touch. Peripheral pulses are 2+. Results & Data ([facility]) Vital Signs (Past 12 Hours) Vital Signs Temp Pulse Resp BP Pulse Ox 08/15/20 08:10 36.4 C L 67 18 153/73 H 95 08/15/20 03:29 36.4 C L 63 16 127/71 93 08/14/20 22:57 36.6 C 63 18 149/71 H 94 Laboratory Results H&H obtained today are 11.1 and 32.2. INR is 1.1. PRP is unremarkable. Mild elevation in BUN at 21. UA obtained today is unremarkable.
[2020-08-15] MEDS: ORTHO WARFARIN NOMOGRAM SCH (11:06)
[2020-08-15] MEDS ORDERED: WARFARIN SOD 5 MG TAB PO SCH (16:00)
[2020-08-16] MEDS ORDERED: ORTHO WARFARIN NOMOGRAM SCH (14:00)
== END 2020-08-15 14:10 ==
LOC: 3E 05:09 → ASU 05:09